=== PATIENT | female | born 1950 | race Caucasian/White ===

== ENCOUNTER 2023-04-28 15:55 | Emergency (ER) | payer MEDICARE ==
--- NOTE | 2023-04-28 15:59 | ERPHSYRPT ---
- History of Present Illness Time Seen by Provider: 04/28/23 15:59 Source: patient, family Exam Limitations: no limitations Physician History: This is an overweight 72-year-old white female patient who presents to the emergency department with complaint of right leg swelling and redness that was noticed this morning. Patient was seen at [facility] on 04/25/2023 and placed on antibiotics to treat a urinary tract infection. Patient has normal albumin level and normal GFR on test that were drawn on that day. Because of the new findings this morning, the patient's family member, daughter, who provided additional, independent medical information, called [facility] and they told her to stop her antibiotics. Patient denies chest pain. Patient denies shortness of breath. Method of Injury: other (Was first noticed no injury) Occurred: this morning Quality: aching Severity of Pain-Max: mild Severity of Pain-Current: mild Lower Extremities Pain: leg: right Modifying Factors: Improves With: nothing Associated Symptoms: none Allergies/Adverse Reactions: No Known Drug Allergies Allergy (Verified 04/28/23 16:09) Home Medications: Furosemide [Lasix] 40 mg PO DAILY 04/28/23 [History] Potassium Chloride [Klor-Con M10] 10 meq PO DAILY 04/28/23 [History] Travel Risk - International Travel Have you traveled outside of the country in past 3 weeks: No - Coronavirus Screening Are you exhibiting any of the following symptoms?: No Close contact with a COVID-19 positive Pt in past 14-21 Days: No - Review of Systems Constitutional: No Symptoms Eyes: No Symptoms Ears, Nose, & Throat: No Symptoms Respiratory: No Symptoms Cardiac: No Symptoms Abdominal/Gastrointestinal: No Symptoms Genitourinary Symptoms: No Symptoms Skin: Rash (? Dermatitis), Other (Redness swelling right lower leg below the knee) Neurological: No Symptoms Psychological: No Symptoms Endocrine: No Symptoms Hematologic/Lymphatic: No Symptoms Immunological/Allergic: No Symptoms All Other Systems: Reviewed and Negative - Past Medical History Pertinent Past Medical History: Yes - Past Surgical History Past Surgical History: Yes - Nursing Vital Signs Nursing Vital Signs: Initial Vital Signs Temperature 98.4 F 04/28/23 16:02 Pulse Rate 84 04/28/23 16:02 Respiratory Rate 20 04/28/23 16:02 Blood Pressure 175/93 04/28/23 16:02 O2 Sat by Pulse Oximetry 97 04/28/23 16:02 Pain Scale Pain Intensity 4 - Physical Exam General Appearance: no apparent distress, alert, anxiety, obese Eyes, Ears, Nose, Throat Exam: normal ENT inspection, moist mucous membranes Neck Exam: normal inspection, non-tender, supple, full range of motion Cardiovascular/Respiratory Exam: chest non-tender, no respiratory distress Gastrointestinal/Abdominal Exam: non-tender Back Exam: normal inspection, normal range of motion, No CVA tenderness, No vertebral tenderness Hips Exam: bilateral: non-tender, normal inspection, normal range of motion, no evidence of injury Legs Exam: right leg: swelling (With associated redness), left leg: non-tender, normal inspection, bilateral leg: normal range of motion, no evidence of injury, other (Both lower extremities skin is very dry and flaky.) Knees Exam: bilateral knee: non-tender, normal inspection, normal range of motion, no evidence of injury Ankle Exam: right ankle: swelling, other (Redness), left ankle: non-tender, normal inspection, bilateral ankle: normal range of motion, no evidence of injury Foot Exam: right foot: swelling, other, left foot: non-tender, normal inspection, bilateral foot: normal range of motion, no evidence of injury Neuro/Tendon Exam: normal sensation, normal motor functions, normal tendon functions, responds to pain, no evidence tendon injury Mental Status Exam: alert, oriented x 3, cooperative Skin Exam: other (Bilateral lower extremity skin dry and flaky) SpO2 Interpretation: normal O2 Delivery: Room Air - Course Nursing assessment & vital signs reviewed: Yes Ordered Tests: Active Orders 24 hr Category Date Time Status VENOUS UNILAT/LIMITED EXTREMIT [US] Stat Exams 04/28/23 16:04 Completed Medication Summary Discontinued Medications Generic Name Dose Route Start Last Admin Trade Name Freq PRN Reason Stop Dose Admin Methylprednisolone Sodium 0 mg 04/28/23 17:10 Succinate 125 mg/ Sterile IM 04/28/23 17:11 Water 2 ml STAT ONE Diphenhydramine HCl 25 mg 04/28/23 17:10 Diphenhydramine Hcl 25 Mg Capsule PO 04/28/23 17:11 STAT ONE Famotidine 40 mg 04/28/23 17:10 Famotidine 20 Mg Tablet PO 04/28/23 17:11 STAT ONE - Progress Progress: unchanged Progress Note: 11/16/23 16:19 This patient's medical issue is 1 of low to moderate complexity. Level complex in the work-up performed is based on review the patient's past medical history, review the patient's medication list, review the patient's drug allergy list, history of present illness and physical findings on examination. Work-up in this patient includes venous Doppler right lower extremity to evaluate for DVT. This appears more as though it is contact dermatitis rather than cellulitis. We will rule in or rule out a DVT and treat her right lower leg as a dermatitis and hold on placing this patient on antibiotics. We will reassess her tomorrow (within 24 hours) on 04/29/2023 in the emergency department. I do not believe she will be able to obtain a follow-up appointment this quickly with her primary care provider. 04/28/23 17:15 The venous Doppler study of the right lower extremity was interpreted by the radiologist. I reviewed the impression. The impression is negative for DVT venous Doppler right lower extremity Counseled pt/family regarding: diagnosis, need for follow-up, rad results Medical Desision Making - Independent Historian Additional History obtained from: Family - Diagnostic Testing Diagnostic test were ordered, analyzed, and reviewed by me: Yes Radiological Interpretation: Reviewed by me, Teleradiologist Report - Risk of complications The pt has a mod risk of morbidity or mortality based on: Need for prescription drug management - Departure Departure Disposition: Home Clinical Impression: Dermatitis of lower extremity Condition: Stable Critical Care Time: No Additional Instructions: Stop all antibiotics. Wash your lower extremities every day and dry well. Apply unscented moisturizing lotion to bilateral lower extremities including ankle and feet twice a day. Do not wear any long socks or pressure hose. Take your steroids as prescribed. Follow-up tomorrow, 04/29/2023 for further evaluation and management. Prescriptions: Prednisone 10 mg [Deltasone 10 mg] 10 mg PO TID #12 tablet
[2023-04-28 16:09] VITALS: RESP 20; TEMP 98.4; O2SAT 97
--- NOTE | 2023-04-28 17:01 | XRAY ---
Indication: Right lower extremity swelling and erythema. Two-dimensional sonogram and color Doppler imaging of the major venous vessels of the right leg performed. Comparison: None No thrombus seen in the examined deep venous vessels of the right leg including greater saphenous vein. Veins demonstrate normal compressibility. Venous waveforms are normal with and without augmentation. Incidental benign-appearing 1.6 x 0.9 cm right inguinal lymph node. Impression: Right leg negative for DVT.
[2023-04-28] MEDS ORDERED: Pepcid 20 MG PO ONE (17:10)
[2023-04-28] MEDS ORDERED: solu-MEDROL 125 MG, Sterile H2O 10 ml 2 ML IM ONE ×2 (17:10)
[2023-04-28] MEDS ORDERED: BENADRYL 25 MG CAPSULE PO ONE (17:10)
[2023-04-28 17:11] VITALS: BP 142/95; PULSE 83
[2023-04-28] MEDS ORDERED: solu-MEDROL ONE (17:15)
[2023-04-28] MEDS ORDERED: Sterile H2O 10 ml IJ ONE (17:15)
[2023-04-28] MEDS ORDERED: BENADRYL 25 MG CAPSULE ONE (17:15)
[2023-04-28] MEDS ORDERED: Pepcid 20 MG ONE (17:15)
== END 2023-04-28 17:55 | disposition home or self-care (01) ==
LOC: ED 15:55
DX: L30.9 Dermatitis, unspecified (principal); Z79.52 Long term (current) use of systemic steroids; Z79.899 Other long term (current) drug therapy
CPT/HCPCS: 93971; 96372; 99283; J2930; A9270-GY

== ENCOUNTER 2023-04-29 12:03 | Emergency (ER) | payer MEDICARE ==
[2023-04-29 12:18] VITALS: TEMP 97.1; O2SAT 96
--- NOTE | 2023-04-29 12:54 | XRAY ---
Indication: Pain and erythema. Comparison: None 2 view right lower leg demonstrates osteopenia, mild medial knee joint space narrowing/spurring, 2 intact medial malleolus orthopedic screws, and small plantar heel spur. No other bony, articular, or soft tissue abnormalities.
[2023-04-29 12:58] LABS: Absolute Neutrophil Ct (ANC) 5.09 x10^3/uL (1.4-6.9); BASOPHIL % 0.1 % (0.0-0.4); Basophil (Absolute #) 0.01 x10^3/uL (0-0.4); Eosinophil (Absolute #) 0 x10^3/uL (0-0.5); Hematocrit 38.9 % (35-47); Hemoglobin 13.4 g/dL (12.0-16.0); IMMATURE GRAN # 0.07 x10^3u/L (0.00-0.03); Lymphocyte (Absolute #) 0.81 x10^3/uL (1.0-4.6); Lymphocytes % 11.9 % (24.0-44.0); Mean Corpuscular Hgb Concent. 34.4 g/dL (32-36); Mean Platelet Volume 9.2 fL (7.5-11.0); Monocyte (Absolute #) 0.83 x10^3/uL (0.0-1.3); Monocytes % 12.2 % (0.0-12.0); Neutrophil % 74.8 % (36.0-66.0); Platelet Count 379 x10^3/uL (150-450); Red Blood Count 4.47 x10^6/uL (4.1-5.4); Red Cell Distribution Width 12.5 % (11.5-14.0); White Blood Count 6.8 x10^3/uL (4.0-10.5)
[2023-04-29 13:10] VITALS: PULSE 80; RESP 16
[2023-04-29 13:13] LABS: ALBUMIN 3.9 g/dL (3.5-5.0); ANION GAP 12.9 MEQ/L (5-15); BILIRUBIN,TOTAL 0.6 mg/dL (0.2-1.3); Calcium 9.2 mg/dL (8.4-10.2); Creatinine 1 0.64 mg/dL (0.52-1.04); Potassium 3.6 mmol/L (3.5-5.1); Total Protein 7.4 g/dL (6.3-8.2)
--- NOTE | 2023-04-29 13:14 | ERPHSYRPT ---
- History of Present Illness Source: patient, other Patient Subjective Stated Complaint: Pt was in the ER yesterday for a right lower leg infection and was told by Dr. Alejandra to return today to see if it had gotten any worse, the leg is not marked and this nurse has not seen this pt before so I do not know if it is any worse Triage Nursing Assessment: Pt brought to the ER, hypertensive, rates pain as a 2/10, RLE is purplish in color with a darkened ring just below the knee, pulses normal, edema, walked into the ER room without assistance Physician History: Patient is a 72-year-old female with right lower extremity erythema for 2 to 3 days. Patient has been seen in clinic and also in the ER yesterday. ER physician thought that the rash was due to a allergic reaction, and she was started on prednisone. Venous Doppler was done yesterday in the ER which was negative. Patient has minimal pain. She denies any injury or fever. Cough, coryza, sore throat, nausea, vomiting, and diarrhea are all denied. Patient does not have a family MD at this time. Method of Injury: other (No injury) Occurred: other (2 to 3 days) Severity of Pain-Max: mild Severity of Pain-Current: mild Lower Extremities Pain: leg: right Modifying Factors: Improves With: nothing Associated Symptoms: none Allergies/Adverse Reactions: No Known Drug Allergies Allergy (Verified 04/29/23 12:18) Home Medications: Furosemide [Lasix] 40 mg PO DAILY 04/28/23 [History] Potassium Chloride [Klor-Con M10] 10 meq PO DAILY 04/28/23 [History] Hx Tetanus, Diphtheria Vaccination/Date Given: Yes Hx Influenza Vaccination/Date Given: No Hx Pneumococcal Vaccination/Date Given: No Travel Risk - International Travel Have you traveled outside of the country in past 3 weeks: No - Coronavirus Screening Are you exhibiting any of the following symptoms?: No Close contact with a COVID-19 positive Pt in past 14-21 Days: No - Vaccine Status Have you recieved a Covid-19 vaccination: No - Review of Systems Constitutional: No Symptoms Eyes: No Symptoms Ears, Nose, & Throat: No Symptoms Respiratory: No Symptoms Cardiac: No Symptoms Abdominal/Gastrointestinal: No Symptoms Genitourinary Symptoms: No Symptoms Skin: Cellulitis Neurological: No Symptoms Psychological: No Symptoms Endocrine: No Symptoms Hematologic/Lymphatic: No Symptoms Immunological/Allergic: No Symptoms - Past Medical History Pertinent Past Medical History: No - Past Surgical History Past Surgical History: No - Social History Smoking Status: Never smoker Exposure to second hand smoke: No Drug Use: none Patient Lives Alone: No - Nursing Vital Signs Nursing Vital Signs: Initial Vital Signs Temperature 97.1 F 04/29/23 12:08 Pulse Rate 85 04/29/23 12:08 Blood Pressure 169/95 04/29/23 12:08 O2 Sat by Pulse Oximetry 96 04/29/23 12:08 Pain Scale Pain Intensity 2 Hypertensive - Physical Exam General Appearance: no apparent distress Eyes, Ears, Nose, Throat Exam: normal ENT inspection, TMs normal, pharynx normal, moist mucous membranes Neck Exam: normal inspection, non-tender, supple, full range of motion, No Brudzinski, No Kernig's, No meningismus, No carotid bruit Cardiovascular/Respiratory Exam: normal breath sounds, regular rate/rhythm, heart sounds normal Gastrointestinal/Abdominal Exam: non-tender, soft Back Exam: normal inspection, normal range of motion Hips Exam: bilateral: non-tender, normal inspection, normal range of motion Legs Exam: right leg: other (Right lower extremity with mild edema and erythema/good pedal pulse, distal sensation, and capillary return. Calf nontender palpation.) Knees Exam: bilateral knee: non-tender, normal inspection, normal range of motion Ankle Exam: bilateral ankle: non-tender, normal inspection, normal range of motion, no evidence of injury Foot Exam: bilateral foot: non-tender, normal inspection, normal range of motion, no evidence of injury Neuro/Tendon Exam: normal sensation, normal motor functions, normal tendon functions, responds to pain, no evidence tendon injury, No motor deficit, No sensory deficit Mental Status Exam: alert, oriented x 3, cooperative Skin Exam: warm, dry SpO2 Interpretation: normal SpO2: 96 O2 Delivery: Room Air - Course Nursing assessment & vital signs reviewed: Yes - Radiology Exams Lower Leg X-ray Interpretation: Reviewed by me (Right tib-fib x-ray negative per Dr. Gr) Ordered Tests: Active Orders 24 hr Category Date Time Status IV Insertion STAT Care 04/29/23 12:45 Completed LOWER LEG Stat Exams 04/29/23 12:29 Completed CBC W DIFF Stat Lab 04/29/23 12:45 Completed CMP Stat Lab 04/29/23 12:28 Completed Lactic Acid Stat Lab 04/29/23 12:45 Completed Lab/Rad Data: Laboratory Result Diagrams 04/29/23 12:45 04/29/23 12:28 Laboratory Results 04/29/23 04/29/23 04/29/23 Range/Units 12:45 12:45 12:28 WBC 6.8 (4.0-10.5) x10^3/uL RBC 4.47 (4.1-5.4) x10^6/uL Hgb 13.4 (12.0-16.0) g/dL Hct 38.9 (35-47) % MCV 87.0 (78-100) fL MCH 30.0 (26-32) pg MCHC 34.4 (32-36) g/dL RDW 12.5 (11.5-14.0) % Plt Count 379 (150-450) x10^3/uL MPV 9.2 (7.5-11.0) fL Gran % 74.8 H (36.0-66.0) % Immature Gran % (Auto) 1.0 H (0.00-0.4) % Nucleat RBC Rel Count 0.0 (0.00-0.1) % Eos # (Auto) 0 (0-0.5) x10^3/uL Immature Gran # (Auto) 0.07 H (0.00-0.03) x10^3u/L Absolute Lymphs (auto) 0.81 L (1.0-4.6) x10^3/uL Absolute Monos (auto) 0.83 (0.0-1.3) x10^3/uL Absolute Nucleated RBC 0.00 (0.00-0.01) x10^3u/L Lymphocytes % 11.9 L (24.0-44.0) % Monocytes % 12.2 H (0.0-12.0) % Eosinophils % 0.0 (0.00-5.0) % Basophils % 0.1 (0.0-0.4) % Absolute Granulocytes 5.09 (1.4-6.9) x10^3/uL Basophils # 0.01 (0-0.4) x10^3/uL Sodium 133 L (137-145) mmol/L Potassium 3.6 (3.5-5.1) mmol/L Chloride 98 (98-107) mmol/L Carbon Dioxide 25 (22-30) mmol/L Anion Gap 12.9 (5-15) MEQ/L BUN 14 (7-17) mg/dL Creatinine 0.64 (0.52-1.04) mg/dL Estimated GFR 95.0 ML/MIN Glucose 138 H (74-106) mg/dL Lactic Acid 0.9 (0.4-2.0) Calcium 9.2 (8.4-10.2) mg/dL Total Bilirubin 0.60 (0.2-1.3) mg/dL AST 19 (14-36) U/L ALT 19 (0-35) U/L Alkaline Phosphatase 75 (38-126) U/L Serum Total Protein 7.4 (6.3-8.2) g/dL Albumin 3.9 (3.5-5.0) g/dL - Progress Progress Note: 04/29/23 17:49 Nursing note and vital signs reviewed. No food or housing insecurities noted. Additional history per per daughter. ER visit reviewed from yesterday. 04/29/23 17:50 Venous Doppler right lower extremity negative from yesterday's ER visit. Right tib-fib x-ray negative per Dr. Gr. Patient's rash is most likely cellulitis. No evidence of sepsis at this time. Patient started on Augmentin 875 mg p.o. twice daily for 1 week and also doxycycline 100 mg p.o. twice daily x1 week. Patient discharged in stable condition and is recommended she follows up with a clinic or primary care physician. Counseled pt/family regarding: lab results, diagnosis, need for follow-up, rad results Medical Desision Making - Diagnostic Testing Diagnostic test were ordered, analyzed, and reviewed by me: Yes Radiological Interpretation: Reviewed by me - Risk of complications The pt has a mod risk of morbidity or mortality based on: Need for prescription drug management - Departure Departure Disposition: Home Clinical Impression: Cellulitis Condition: Stable Critical Care Time: No Referrals: DOCTOR,NO FAMILY [Primary Care Provider] - Follow up/PCP as directed Instructions: Cellulitis (Skin Infection), Adult (DC) Additional Instructions: Follow-up in clinic on Tuesday or Tuesday of next week. Elevate leg. Start Augmentin twice a day for 1 week and also doxycycline twice a day for 1 week. Stop the prednisone. Return to ER for increasing redness, increasing pain, temperature greater 100.5, or any pus. Also return to ER for any chest pain or shortness of breath. Prescriptions: Amox Tr/Potass Clav. 875 mg [Augmentin 875-125 Tablet] 875 mg PO STAT 7 Days #14 tablet Doxycycline Monohydrate 100 mg PO BID 7 Days #14 cap
[2023-04-29 13:40] VITALS: BP 154/78
== END 2023-04-29 13:56 | disposition home or self-care (01) ==
LOC: ED 12:03
DX: L03.115 Cellulitis of right lower limb (principal); Z79.899 Other long term (current) drug therapy; Z28.310 Unvaccinated for COVID-19
CPT/HCPCS: 36000; 36415; 73590; 80053; 83605; 85025; 99283

== ENCOUNTER 2024-02-11 09:04 | Emergency (ER) | payer MEDICARE, BC ==
[2024-02-11 09:18] VITALS: BP 154/90; PULSE 81; TEMP 97.1; O2SAT 96
[2024-02-11 09:59] LABS: Hematocrit 34.1 % (34.1-44.9); Hemoglobin 11.6 g/dL (11.2-15.7); Mean Cell Volume 87.7 fL (79.4-94.8); Mean Corpuscular Hemoglobin 29.8 pg (25.6-32.2); Mean Platelet Volume 9.1 fL (9.4-12.3); Platelet Count 347 x10^3/uL (182-369); Red Blood Count 3.89 x10^6/uL (3.93-5.22); Red Cell Distribution Width 12.8 % (11.7-14.4); White Blood Count 5.2 x10^3/uL (3.98-10.04)
[2024-02-11 10:11] LABS: ANION GAP 13.2 MEQ/L (5-15); Creatinine 1 0.64 mg/dL (0.52-1.04); EST GLOMERULAR FILTRATION RATE 94.4 ML/MIN; Potassium 3.9 mmol/L (3.5-5.1)
--- NOTE | 2024-02-11 10:34 | ERPHSYRPT ---
- History of Present Illness Time Seen by Provider: 02/11/24 10:30 Source: patient Exam Limitations: no limitations Patient Subjective Stated Complaint: Pt's left middle finger tip is swollen and is red/purple and white, pt [facility] [place] [facility] [place] given an a ntibiotic and pt was unsure if the cat had nipped her or if she has an ingrown fingernail Triage Nursing Assessment: Pt brought to the ER by her daughter, hypertensive, rates pain as 6/10, pulses normal, left hand 3rd finger is swollen and is red/purple and white, been on antibiotics for the past 2 days, doesn't appear to be in any distress Physician History: 73-year-old presented to the ER with complaint of left hand third digit tip swelling pain. Patient reports he was seen at urgent care and has been taking Augmentin and topical antibiotics but it seems like swelling is getting worse and now she has a pus in the nail fold. No fever or chills reported. Pain is moderate intensity sharp, aggravated with movements at interphalangeal joint. Patient has some mild tenderness but no fluctuation. Has abscess with fluctuation in the nail fold. Has normal white count, fairly unremarkable chemistries and x-rays are negative for any free air. I have done needle I&D and drained pus. Patient feel improvement of the pressure in the finger. Recommended continue with antibiotics. Outpatient follow-up. Allergies/Adverse Reactions: No Known Drug Allergies Allergy (Verified 02/11/24 09:19) Home Medications: Amox Tr/Potass Clav. 875 mg [Augmentin 875-125 Tablet] 875 mg PO BID 02/11/24 [History] Mupirocin [Bactroban OINTMENT] 0 gm TOP TID 02/11/24 [History] Hx Tetanus, Diphtheria Vaccination/Date Given: Yes Hx Influenza Vaccination/Date Given: No Hx Pneumococcal Vaccination/Date Given: No Travel Risk - International Travel Have you traveled outside of the country in past 3 weeks: No - Emerging Infectious Disease Are you exhibiting symptoms associated with any current EIDs: No - Review of Systems Constitutional: No Symptoms Ears, Nose, & Throat: No Symptoms Respiratory: No Symptoms Cardiac: No Symptoms Musculoskeletal: Injury Skin: Cellulitis, Induration, Skin Lesions Neurological: No Symptoms Psychological: No Symptoms - Past Medical History Pertinent Past Medical History: No - Past Surgical History Past Surgical History: Yes Musculoskeletal: Orthopedic Surgery Other Surgical History: rt ankle with screws - Social History Smoking Status: Never smoker Exposure to second hand smoke: No Drug Use: none Patient Lives Alone: No - Social Determinants of Health Will the patient participate in the screening: Declined to provide - Nursing Vital Signs Nursing Vital Signs: Initial Vital Signs Temperature 97.1 F 02/11/24 09:10 Pulse Rate 81 02/11/24 09:10 Blood Pressure 154/90 02/11/24 09:10 O2 Sat by Pulse Oximetry 96 02/11/24 09:10 Pain Scale Pain Intensity 6 - Physical Exam General Appearance: no apparent distress Neck Exam: normal inspection, full range of motion Respiratory Exam: normal breath sounds, lungs clear Cardiovascular Exam: regular rate/rhythm, normal heart sounds Extremity Exam: other (Diffuse swelling left hand third digit tip with abscess on the nail fold. Erythema in the pulp. No fluctuation.) Neurologic Exam: alert, oriented x 3, cooperative Skin Exam: normal color SpO2 Interpretation: normal SpO2: 96 O2 Delivery: Room Air Procedures - Incision and Drainage Time of Procedure: 10:26 Timeout: Performed Site: Left hand third digit nail fold Blade Size: other (18-gauge needle) I & D Procedure: betadine prep, sterile dressing applied Results: moderate amount pus Ordered Tests: Active Orders 24 hr Category Date Time Status FINGER(S) Stat Exams 02/11/24 09:23 Taken BMP Stat Lab 02/11/24 09:23 Completed CBC Stat Lab 02/11/24 09:23 Completed Medication Summary Discontinued Medications Generic Name Dose Route Start Last Admin Trade Name Vida PRN Reason Stop Dose Admin Bacitracin Zinc 0.9 each 02/11/24 10:49 02/11/24 10:55 Bacitracin Packet 1 Each Pckt TP 02/11/24 10:50 0.9 each STAT ONE Administration Bacitracin Zinc Confirm 02/11/24 10:49 Bacitracin Packet 1 Each Pckt Administered 02/11/24 10:50 Dose 1 each .ROUTE .STK-MED ONE Lab/Rad Data: Laboratory Result Diagrams 02/11/24 09:23 02/11/24 09:23 Laboratory Results 02/11/24 02/11/24 Range/Units 09:23 09:23 WBC 5.2 (3.98-10.04) x10^3/uL RBC 3.89 L (3.93-5.22) x10^6/uL Hgb 11.6 (11.2-15.7) g/dL Hct 34.1 (34.1-44.9) % MCV 87.7 (79.4-94.8) fL MCH 29.8 (25.6-32.2) pg MCHC 34.0 (32.2-35.5) g/dL RDW 12.8 (11.7-14.4) % Plt Count 347 (182-369) x10^3/uL MPV 9.1 L (9.4-12.3) fL Sodium 137 (135-145) mmol/L Potassium 3.9 (3.5-5.1) mmol/L Chloride 105 (98-107) mmol/L Carbon Dioxide 23 (22-30) mmol/L Anion Gap 13.2 (5-15) MEQ/L BUN 17 (7-17) mg/dL Creatinine 0.64 (0.52-1.04) mg/dL Estimated GFR 94.4 ML/MIN Glucose 106 (74-106) mg/dL Calcium 9.0 (8.4-10.2) mg/dL - Progress Progress: improved Progress Note: 02/11/24 10:31 73-year-old presented to the ER with complaint of left hand third digit tip swelling pain. Patient reports he was seen at urgent care and has been taking Augmentin and topical antibiotics but it seems like swelling is getting worse and now she has a pus in the nail fold. No fever or chills reported. Pain is moderate intensity sharp, aggravated with movements at interphalangeal joint. Patient has some mild tenderness but no fluctuation. Has abscess with fluctua tion in the nail fold. Has normal white count, fairly unremarkable chemistries and x-rays are negative for any free air. I have done needle I&D and drained pus. Patient feel improvement of the pressure in the finger. Dressing applied. I do not think patient has cat bite as she was not sure but it is more of a paronychia. Recommended continue with antibiotics. Outpatient follow-up. Counseled pt/family regarding: lab results, diagnosis, need for follow-up, rad results Medical Desision Making - Independent Historian Additional History obtained from: Family - Diagnostic Testing Diagnostic test were ordered, analyzed, and reviewed by me: Yes Radiological Interpretation: Interpreted by me, Reviewed by me - Risk of complications The pt has a mod risk of morbidity or mortality based on: Need for prescription drug management, Need for minor surgical intervention in patient with know risk factors - Departure Departure Disposition: Home Clinical Impression: Paronychia of finger, Cellulitis, finger Condition: Stable Critical Care Time: No Referrals: MITCHELL BEYER [Primary Care Provider] - Follow up with PCP 1 day Instructions: Paronychia ED Additional Instructions: Take Tylenol as needed. Continue with current topical and oral antibiotics. Follow-up with primary care for reevaluation. Return to ER for increasing pain swelling or if develop fever chills etc.
[2024-02-11] MEDS ORDERED: BACIGUENT PACKET ONE (10:49)
[2024-02-11] MEDS: BACIGUENT PACKET TP ONE (10:55)
--- NOTE | 2024-02-11 20:53 | XRAY ---
Indication: Pain following cat bite. Comparison: None 3 view left 3rd finger demonstrates osteopenia and mild degenerative changes all visualized IP/MCP joints. No other bony, articular, or soft tissue abnormalities.
== END 2024-02-11 10:58 | disposition home or self-care (01) ==
LOC: ED 09:04
DX: L03.012 Cellulitis of left finger (principal); M79.645 Pain in left finger(s); Z79.899 Other long term (current) drug therapy
CPT/HCPCS: 10160; 36415; 73140; 80048; 85027; 99283; A9270-GY